=== PATIENT | male | born 1950 | race Caucasian/White ===

== ENCOUNTER → 2016-08-16 | Outpatient (CLI) | payer MEDICARE, BC, OTHER | LOC: M SMT 10:57 | PROVIDERS: ATTEND Urology | DX: Z85.51 Personal history of malignant neoplasm of bladder (principal) ==

== ENCOUNTER → 2017-01-24 | Outpatient (CLI) | payer MEDICARE, BC, OTHER | LOC: M SMT 11:23 | PROVIDERS: ATTEND Urology | DX: N42.9 Disorder of prostate, unspecified (principal) ==

== ENCOUNTER → 2017-08-08 | Outpatient (CLI) | payer MEDICARE, BC, OTHER ==
[2017-08-08 19:29] LABS: PROSTATIC SPECIFIC AG MONITOR 0.62 NG/ML (< 4.0)
== END ==
LOC: M SMT 14:28
DX: Z08 Encounter for follow-up examination after completed treatment for malignant neoplasm (principal); Z85.51 Personal history of malignant neoplasm of bladder
CPT/HCPCS: 84153

== ENCOUNTER → 2018-01-16 | Outpatient (REF) | payer BC, MEDICARE, OTHER | LOC: M SMT 17:16 | DX: Z85.51 Personal history of malignant neoplasm of bladder (principal) | CPT/HCPCS: 88108 ==

== ENCOUNTER → 2019-01-15 | Outpatient (CLI) | payer MEDICARE, BC, OTHER | LOC: M SMT 09:34 | PROVIDERS: ATTEND Urology | DX: Z85.46 Personal history of malignant neoplasm of prostate (principal) ==

== ENCOUNTER → 2020-01-11 | Outpatient (REF) | payer MEDICARE, BC, OTHER | LOC: M SMT 17:04 | PROVIDERS: ATTEND Urology | DX: Z85.51 Personal history of malignant neoplasm of bladder (principal) ==

== ENCOUNTER → 2020-12-29 | Outpatient (REF) | payer MEDICARE, BC, OTHER | LOC: M SMT 13:07 | PROVIDERS: ATTEND Urology | DX: Z85.51 Personal history of malignant neoplasm of bladder (principal) ==

== ENCOUNTER → 2022-01-11 | Outpatient (REF) | payer MEDICARE, BC, OTHER | LOC: M SMT 17:18 | PROVIDERS: ATTEND Urology | DX: Z85.51 Personal history of malignant neoplasm of bladder (principal) ==

== ENCOUNTER 2023-11-23 12:31 | Inpatient (IN) | payer MEDICARE, OTHER ==
[2023-11-23] VITALS (8 sets, daily range): BP systolic 115–136; BP diastolic 57–76; TEMP 97.2–97.8; O2SAT 95–100
[~2023-11-23] VITALS: Ht 188 cm; Wt 84.3 kg
[2023-11-23] MEDS ORDERED: PANT40TA29 PO (12:44)
[2023-11-23 14:14] LABS: BASO % 0.6 % (0.0-1.0); EOS # 0.1 10^3/uL (0.0-0.5); EOS % 1.6 % (0.0-3.0); HEMATOCRIT 25.5 % (42.0-52.0); HEMOGLOBIN 8.4 g/dl (13.5-17.5); LYMPH # 1.5 10^3/uL (1.5-5.0); LYMPH % 21.9 % (24.0-44.0); MEAN CORPUSCULAR HEMOGLOBIN 32.1 pg (27.0-33.0); MEAN CORPUSCULAR HGB CONC 32.9 g/dl (32.0-36.5); MEAN CORPUSCULAR VOLUME 97.3 fl (80.0-96.0); MONO # 0.4 10^3/uL (0.0-0.8); NEUTROPHILS # 4.7 10^3/uL (1.5-8.5); NEUTROPHILS % 69.3 % (36.0-66.0); PLATELET COUNT, AUTOMATED 187 10^3/uL (150-450); RED BLOOD COUNT 2.62 10^6/uL (4.30-6.10); WHITE BLOOD COUNT 6.8 10^3/uL (4.0-10.0)
[2023-11-23 14:28] LABS: INR 1.14; PROTHROMBIN TIME 14.2 SECONDS (12.5-14.5)
[2023-11-23 14:45] LABS: ALBUMIN 3.2 G/DL (3.2-5.2); ALKALINE PHOSPHATASE 56 U/L (46-116); ALT/SGPT 22 U/L (7.0-40); AST/SGOT 25 U/L (<34); BILIRUBIN,DIRECT 0.2 MG/DL (<0.4); BILIRUBIN,TOTAL 0.4 MG/DL (0.3-1.2); BLOOD UREA NITROGEN 19 MG/DL (9-23); CALCIUM LEVEL 8.6 MG/DL (8.3-10.6); CARBON DIOXIDE LEVEL 27 MMOL/L (20-31); CHLORIDE LEVEL 103 MMOL/L (98-107); CREATININE FOR GFR 0.87 MG/DL (0.70-1.30); GLOMERULAR FILTRATION RATE > 60.0 (>42); GLUCOSE, FASTING 94 MG/DL (74-106); POTASSIUM SERUM 4.1 MMOL/L (3.5-5.1); SODIUM LEVEL 133 MMOL/L (136-145); TOTAL PROTEIN 5.8 G/DL (5.7-8.2)
[2023-11-23] MEDS: PANTOPRAZOLE 40MG VIAL IV ONE (15:04)
[2023-11-23] MEDS: SUCRALFATE SUSP 1GM/10ML UD PO ONE (15:38)
[2023-11-23] MEDS ORDERED: ROSU10TA61 PO (16:14)
[2023-11-23] MEDS ORDERED: LEVO75TA4 PO (16:14)
[2023-11-23] MEDS ORDERED: UBRO100T PO (16:14)
[2023-11-23] MEDS ORDERED: MOM 30ML SUSPENSION UDC PO PRN (16:15)
[2023-11-23] MEDS ORDERED: MIRALAX *UNIT DOSE* 17GM PACKET PO PRN (16:15)
[2023-11-23] MEDS ORDERED: MAALOX 30 ML SUSP *UDC PO PRN (16:15)
[2023-11-23] MEDS ORDERED: UBRELVY 100 MG PO PRN (16:15)
[2023-11-23] MEDS ORDERED: HOME MED LIST COMPLETE! XX SCH (16:15)
[2023-11-23] MEDS ORDERED: SUCRALFATE SUSP 1GM/10ML UD PO SCH (17:30)
[2023-11-23] MEDS: SENOKOT S TAB PO SCH (21:02)
[2023-11-23] MEDS: SUCRALFATE SUSP 1GM/10ML UD PO SCH (21:02)
[2023-11-24] VITALS (9 sets, daily range): BP systolic 111–135; BP diastolic 55–65; TEMP 96.9–97.9; O2SAT 97–100
[2023-11-24 00:26] LABS: HEMATOCRIT 24.7 % (42.0-52.0); HEMOGLOBIN 8.5 g/dl (13.5-17.5)
[2023-11-24] MEDS: LEVOTHYROXINE 75MCG TABLET (0.075MG) PO SCH (05:43)
[2023-11-24 06:32] LABS: BASO % 0.5 % (0.0-1.0); EOS # 0.1 10^3/uL (0.0-0.5); EOS % 2.2 % (0.0-3.0); HEMATOCRIT 24.4 % (42.0-52.0); HEMOGLOBIN 8.1 g/dl (13.5-17.5); LYMPH # 1.3 10^3/uL (1.5-5.0); LYMPH % 21.3 % (24.0-44.0); MEAN CORPUSCULAR HEMOGLOBIN 31.2 pg (27.0-33.0); MEAN CORPUSCULAR HGB CONC 33.2 g/dl (32.0-36.5); MEAN CORPUSCULAR VOLUME 93.8 fl (80.0-96.0); MONO # 0.4 10^3/uL (0.0-0.8); MONO % 6.1 % (2.0-8.0); NEUTROPHILS # 4.3 10^3/uL (1.5-8.5); NEUTROPHILS % 69.3 % (36.0-66.0); PLATELET COUNT, AUTOMATED 162 10^3/uL (150-450); WHITE BLOOD COUNT 6.2 10^3/uL (4.0-10.0)
[2023-11-24 07:01] LABS: BLOOD UREA NITROGEN 30 MG/DL (9-23); CALCIUM LEVEL 7.7 MG/DL (8.3-10.6); CARBON DIOXIDE LEVEL 27 MMOL/L (20-31); CHLORIDE LEVEL 110 MMOL/L (98-107); CREATININE FOR GFR 0.75 MG/DL (0.70-1.30); GLOMERULAR FILTRATION RATE > 60.0 (>42); GLUCOSE, FASTING 95 MG/DL (74-106); MAGNESIUM LEVEL 1.9 MG/DL (1.8-2.4); SODIUM LEVEL 139 MMOL/L (136-145)
[2023-11-24 07:34] LABS: IRON (FE) 98 UG/DL (65-175); PERCENT SATURATION 42.4 % (19.7-50.0); TOTAL IRON BINDING CAPACITY 231 UG/DL (250-425)
[2023-11-24 07:37] LABS: FERRITIN 157.5 NG/ML (10.5-307.3); FOLATE 16.61 NG/ML (>5.4); VITAMIN B12 LEVEL 797 PG/ML (211-911)
[2023-11-24] MEDS: PANTOPRAZOLE 40MG VIAL IV SCH (08:18)
[2023-11-24] MEDS: ROSUVASTATIN 10 MG TAB (CRESTOR) PO SCH (08:19)
[2023-11-24] MEDS ORDERED: PANTOPRAZOLE 40MG TAB (PROTONIX) PO SCH (09:00)
[2023-11-24] MEDS: BISACODYL 10MG SUPP PR ONE (12:39)
[2023-11-24] MEDS ORDERED: FLEET ENEMA PR PRN (14:40)
[2023-11-24 15:26] LABS: HEMATOCRIT 29.7 % (42.0-52.0); HEMOGLOBIN 10.2 g/dl (13.5-17.5)
[2023-11-24] MEDS ORDERED: LACTULOSE 20GM/30ML SYRUP UDC PO SCH (18:00)
[2023-11-24 22:44] LABS: HEMATOCRIT 25.7 % (42.0-52.0); HEMOGLOBIN 8.9 g/dl (13.5-17.5)
[2023-11-25] MEDS: UNRESOLVED NON-FORMULARY MED ORDER XX SCH (00:01)
[2023-11-25 01:35] VITALS: BP 120/60; TEMP 98.2; O2SAT 98
[2023-11-25 02:46] LABS: HEMATOCRIT 25.1 % (42.0-52.0); HEMOGLOBIN 8.5 g/dl (13.5-17.5)
[2023-11-25 03:55] VITALS: BP 135/70; TEMP 98.2; O2SAT 98
[2023-11-25 05:01] LABS: BASO % 0.5 % (0.0-1.0); EOS # 0.2 10^3/uL (0.0-0.5); EOS % 3.5 % (0.0-3.0); HEMATOCRIT 25.4 % (42.0-52.0); HEMOGLOBIN 8.6 g/dl (13.5-17.5); LYMPH # 1.7 10^3/uL (1.5-5.0); LYMPH % 28.8 % (24.0-44.0); MEAN CORPUSCULAR HEMOGLOBIN 31.2 pg (27.0-33.0); MEAN CORPUSCULAR HGB CONC 33.9 g/dl (32.0-36.5); MONO # 0.5 10^3/uL (0.0-0.8); MONO % 7.9 % (2.0-8.0); NEUTROPHILS # 3.4 10^3/uL (1.5-8.5); NEUTROPHILS % 58.8 % (36.0-66.0); PLATELET COUNT, AUTOMATED 171 10^3/uL (150-450); RED BLOOD COUNT 2.76 10^6/uL (4.30-6.10); WHITE BLOOD COUNT 5.7 10^3/uL (4.0-10.0)
[2023-11-25 05:25] LABS: BLOOD UREA NITROGEN 22 MG/DL (9-23); CALCIUM LEVEL 7.9 MG/DL (8.3-10.6); CARBON DIOXIDE LEVEL 25 MMOL/L (20-31); CHLORIDE LEVEL 110 MMOL/L (98-107); GLOMERULAR FILTRATION RATE > 60.0 (>42); GLUCOSE, FASTING 89 MG/DL (74-106); MAGNESIUM LEVEL 2.1 MG/DL (1.8-2.4); POTASSIUM SERUM 4.1 MMOL/L (3.5-5.1); SODIUM LEVEL 139 MMOL/L (136-145)
[2023-11-25 08:20] VITALS: BP 131/62; TEMP 96.8; O2SAT 100
[2023-11-25 12:31] LABS: HEMATOCRIT 27.4 % (42.0-52.0); HEMOGLOBIN 9.3 g/dl (13.5-17.5); MEAN CORPUSCULAR HEMOGLOBIN 31.3 pg (27.0-33.0); MEAN CORPUSCULAR HGB CONC 33.9 g/dl (32.0-36.5); MEAN CORPUSCULAR VOLUME 92.3 fl (80.0-96.0); PLATELET COUNT, AUTOMATED 194 10^3/uL (150-450); RED BLOOD COUNT 2.97 10^6/uL (4.30-6.10)
[2023-11-25] MEDS: ACETAMINOPHEN TAB 650MG DOSE (2X325MG) PO PRN (13:24)
[2023-11-25 13:32] VITALS: BP 142/64; TEMP 97.2; O2SAT 100
[2023-11-25 16:09] VITALS: BP 127/63; TEMP 97.1; O2SAT 99
[2023-11-25 20:32] LABS: HEMATOCRIT 26.2 % (42.0-52.0); MEAN CORPUSCULAR HEMOGLOBIN 31.8 pg (27.0-33.0); MEAN CORPUSCULAR HGB CONC 34.4 g/dl (32.0-36.5); MEAN CORPUSCULAR VOLUME 92.6 fl (80.0-96.0); PLATELET COUNT, AUTOMATED 186 10^3/uL (150-450); RED BLOOD COUNT 2.83 10^6/uL (4.30-6.10); WHITE BLOOD COUNT 5.5 10^3/uL (4.0-10.0)
[2023-11-25] MEDS: RAMELTEON 8 MG TAB (ROZEREM) PO SCH (21:05)
[2023-11-26 04:14] VITALS: BP 131/63; TEMP 98; O2SAT 98
[2023-11-26 04:23] LABS: HEMATOCRIT 26.3 % (42.0-52.0); HEMOGLOBIN 8.8 g/dl (13.5-17.5); MEAN CORPUSCULAR HEMOGLOBIN 31.3 pg (27.0-33.0); MEAN CORPUSCULAR HGB CONC 33.5 g/dl (32.0-36.5); MEAN CORPUSCULAR VOLUME 93.6 fl (80.0-96.0); PLATELET COUNT, AUTOMATED 180 10^3/uL (150-450); RED BLOOD COUNT 2.81 10^6/uL (4.30-6.10); WHITE BLOOD COUNT 5.1 10^3/uL (4.0-10.0)
[2023-11-26 04:48] LABS: BLOOD UREA NITROGEN 11 MG/DL (9-23); CARBON DIOXIDE LEVEL 27 MMOL/L (20-31); CHLORIDE LEVEL 107 MMOL/L (98-107); CREATININE FOR GFR 0.92 MG/DL (0.70-1.30); GLOMERULAR FILTRATION RATE > 60.0 (>42); GLUCOSE, FASTING 92 MG/DL (74-106); POTASSIUM SERUM 4.4 MMOL/L (3.5-5.1); SODIUM LEVEL 136 MMOL/L (136-145)
[2023-11-26 07:57] VITALS: BP 137/74; TEMP 97.4; O2SAT 100
[2023-11-26 10:10] LABS: HEMATOCRIT 29.3 % (42.0-52.0); HEMOGLOBIN 9.7 g/dl (13.5-17.5)
[2023-11-26] MEDS: MORPHINE 2 MG/ML 1ML VIAL IV PRN (11:04)
[2023-11-26 12:21] VITALS: BP 125/59; TEMP 97.1; O2SAT 100
[2023-11-26 13:34] LABS: HEMATOCRIT 26.7 % (42.0-52.0); MEAN CORPUSCULAR HEMOGLOBIN 31.6 pg (27.0-33.0); MEAN CORPUSCULAR HGB CONC 33.7 g/dl (32.0-36.5); MEAN CORPUSCULAR VOLUME 93.7 fl (80.0-96.0); PLATELET COUNT, AUTOMATED 198 10^3/uL (150-450); RED BLOOD COUNT 2.85 10^6/uL (4.30-6.10); WHITE BLOOD COUNT 4.5 10^3/uL (4.0-10.0)
[2023-11-26 16:25] VITALS: BP 124/62; TEMP 97.7; O2SAT 99
[2023-11-26] MEDS: cefTRIAXone SOD 1 GM in D5W MINI-BAG PLUS 50 ML IV SCH (17:14)
[2023-11-26] MEDS: LACTOBACILLUS ACIDOPHILUS CAP (BACID) PO SCH (18:23)
[2023-11-26] MEDS: metroNIDAZOLE 500 MG in IV 1 EA IV SCH (18:23)
[2023-11-26 19:53] VITALS: BP 136/73; TEMP 97.3; O2SAT 100
[2023-11-26 20:39] LABS: HEMATOCRIT 25.1 % (42.0-52.0); HEMOGLOBIN 8.3 g/dl (13.5-17.5); MEAN CORPUSCULAR HEMOGLOBIN 31.2 pg (27.0-33.0); MEAN CORPUSCULAR HGB CONC 33.1 g/dl (32.0-36.5); MEAN CORPUSCULAR VOLUME 94.4 fl (80.0-96.0); PLATELET COUNT, AUTOMATED 190 10^3/uL (150-450); RED BLOOD COUNT 2.66 10^6/uL (4.30-6.10); WHITE BLOOD COUNT 4.4 10^3/uL (4.0-10.0)
[2023-11-27 03:59] VITALS: BP 119/57; TEMP 97.2; O2SAT 97
[2023-11-27] MEDS: NS 1,000 ML IV SCH (05:51)
[2023-11-27 06:58] LABS: BLOOD UREA NITROGEN 6 MG/DL (9-23); CALCIUM LEVEL 8.2 MG/DL (8.3-10.6); CARBON DIOXIDE LEVEL 28 MMOL/L (20-31); CHLORIDE LEVEL 111 MMOL/L (98-107); CREATININE FOR GFR 0.89 MG/DL (0.70-1.30); GLOMERULAR FILTRATION RATE > 60.0 (>42); GLUCOSE, FASTING 89 MG/DL (74-106); POTASSIUM SERUM 4.6 MMOL/L (3.5-5.1); SODIUM LEVEL 141 MMOL/L (136-145)
[2023-11-27 08:03] VITALS: BP 114/64; TEMP 97.1; O2SAT 100
[2023-11-27 08:04] LABS: BASO % 0.4 % (0.0-1.0); EOS # 0.3 10^3/uL (0.0-0.5); EOS % 5.8 % (0.0-3.0); HEMATOCRIT 26.8 % (42.0-52.0); LYMPH # 1.2 10^3/uL (1.5-5.0); LYMPH % 24.5 % (24.0-44.0); MEAN CORPUSCULAR HGB CONC 33.6 g/dl (32.0-36.5); MEAN CORPUSCULAR VOLUME 95.4 fl (80.0-96.0); MONO # 0.3 10^3/uL (0.0-0.8); MONO % 6.6 % (2.0-8.0); NEUTROPHILS % 62.1 % (36.0-66.0); PLATELET COUNT, AUTOMATED 198 10^3/uL (150-450); RED BLOOD COUNT 2.81 10^6/uL (4.30-6.10); WHITE BLOOD COUNT 4.9 10^3/uL (4.0-10.0)
[2023-11-27] MEDS ORDERED: diphenhydrAMINE CREAM 30GM TOP PRN (11:10)
[2023-11-27 15:44] VITALS: BP 124/62; TEMP 97.5; O2SAT 100
[2023-11-27] MEDS: BISACODYL 5MG TAB PO ONE (16:44)
[2023-11-27] MEDS: GOLYTELY SOLN 4000 ML BTL PO ONE (18:57)
[2023-11-27 19:56] VITALS: BP 132/58; TEMP 97.2; O2SAT 100
[2023-11-27 20:00] VITALS: BP 132/58; TEMP 97.2; O2SAT 100
[2023-11-28 04:16] VITALS: BP 119/56; TEMP 97.4; O2SAT 98
[2023-11-28] MEDS: MAGNESIUM CITRATE 300ML BTL PO ONE (04:55)
[2023-11-28 07:04] LABS: BLOOD UREA NITROGEN 8 MG/DL (9-23); CALCIUM LEVEL 8.3 MG/DL (8.3-10.6); CARBON DIOXIDE LEVEL 27 MMOL/L (20-31); CHLORIDE LEVEL 109 MMOL/L (98-107); CREATININE FOR GFR 0.97 MG/DL (0.70-1.30); GLOMERULAR FILTRATION RATE > 60.0 (>42); GLUCOSE, FASTING 95 MG/DL (74-106); POTASSIUM SERUM 4.2 MMOL/L (3.5-5.1); SODIUM LEVEL 139 MMOL/L (136-145)
[2023-11-28 07:43] LABS: BASO % 0.6 % (0.0-1.0); EOS # 0.2 10^3/uL (0.0-0.5); EOS % 4.4 % (0.0-3.0); HEMATOCRIT 28.3 % (42.0-52.0); HEMOGLOBIN 9.4 g/dl (13.5-17.5); LYMPH # 1.3 10^3/uL (1.5-5.0); LYMPH % 26.5 % (24.0-44.0); MEAN CORPUSCULAR HEMOGLOBIN 31.8 pg (27.0-33.0); MEAN CORPUSCULAR HGB CONC 33.2 g/dl (32.0-36.5); MEAN CORPUSCULAR VOLUME 95.6 fl (80.0-96.0); MONO # 0.4 10^3/uL (0.0-0.8); MONO % 7.4 % (2.0-8.0); NEUTROPHILS % 60.7 % (36.0-66.0); PLATELET COUNT, AUTOMATED 236 10^3/uL (150-450); RED BLOOD COUNT 2.96 10^6/uL (4.30-6.10)
[2023-11-28 08:00] VITALS: BP 117/62; TEMP 97; O2SAT 100
[2023-11-28] MEDS ORDERED: LIDOCAINE 2% 100MG/5ML SDV (FOR ANES.) As Ordered ONE (09:20)
[2023-11-28] MEDS ORDERED: propofoL 200 MG/20 ML VIAL As Ordered ONE (09:20)
[2023-11-28 12:00] VITALS: BP 115/71; TEMP 97.1; O2SAT 100
[2023-11-28] MEDS ORDERED: fentaNYL 250 MCG/5 ML INJECTION As Ordered ONE (13:01)
[2023-11-28] MEDS ORDERED: ONDANSETRON 4MG 2ML VIAL IV PRN (13:50)
[2023-11-28] MEDS ORDERED: SUCR1ORA PO (14:20)
[2023-11-28] MEDS ORDERED: PROT1TAB2 PO (14:20)
[2023-11-28] MEDS ORDERED: CEFD300C PO (14:20)
[2023-11-28] MEDS ORDERED: METR-265 PO (14:20)
[2023-11-28] MEDS ORDERED: PROBCAP14 PO (14:23)
[2023-11-28 14:26] VITALS: BP 121/97; TEMP 97.6; O2SAT 100
[2023-11-28] MEDS: metroNIDAZOLE (FLAGYL) 500MG TABLET PO SCH (15:25)
[2023-11-28] MEDS: CEFDINIR 300 MG CAP (OMNICEF) PO ONE (15:25)
[2023-11-28] MEDS ORDERED: CEFDINIR 300 MG CAP (OMNICEF) PO SCH (21:00)
== END 2023-11-28 16:12 | disposition home or self-care (01) | DRG 378 ==
LOC: M ED 12:31 → M ED INP 12:32 → M PCU 20:42 → OBSVTOIN 11-25 10:55
PROVIDERS: ADMIT Internal Medicine; ATTEND Student in an Organized Health Care Education/Training Program
PROC: 30233N1 Transfusion of Nonautologous Red Blood Cells into Peripheral Vein, Percutaneous Approach (ICD-10-PCS; 2023-11-25)
PROC: 0DJD8ZZ Inspection of Lower Intestinal Tract, Via Natural or Artificial Opening Endoscopic (ICD-10-PCS; 2023-11-28)
PROC: 0DJ08ZZ Inspection of Upper Intestinal Tract, Via Natural or Artificial Opening Endoscopic (ICD-10-PCS; principal; 2023-11-28 10:00)
DX: K26.4 Chronic or unspecified duodenal ulcer with hemorrhage (principal); E87.1 Hypo-osmolality and hyponatremia; D50.0 Iron deficiency anemia secondary to blood loss (chronic); E03.9 Hypothyroidism, unspecified; K57.30 Diverticulosis of large intestine without perforation or abscess without bleeding; Z85.51 Personal history of malignant neoplasm of bladder; Z85.46 Personal history of malignant neoplasm of prostate; Z91.040 Latex allergy status; Z79.899 Other long term (current) drug therapy; E78.5 Hyperlipidemia, unspecified

== ENCOUNTER → 2024-01-06 | Outpatient (REF) | payer MEDICARE, OTHER ==
[~2024-01-06] MED LIST: CEFD300C PO; LEVO75TA4 PO; METR-265 PO; PANT40TA29 PO; PROBCAP14 PO; PROT1TAB2 PO; ROSU10TA61 PO; SUCR1ORA PO; UBRO100T PO
== END ==
LOC: M SMT 17:05
PROVIDERS: ATTEND Urology
DX: Z85.51 Personal history of malignant neoplasm of bladder (principal)

== ENCOUNTER → 2025-01-04 | Outpatient (REF) | payer MEDICARE, OTHER, BC | LOC: M SMT 15:19 | PROVIDERS: ATTEND Urology | DX: C67.9 Malignant neoplasm of bladder, unspecified (principal) ==